=== PATIENT | female | born 1960 | race Caucasian/White ===

== ENCOUNTER → 2016-06-10 | Outpatient (CLI) | payer OTHER ==
--- NOTE | 2016-06-11 05:44 | PAP/PSG TECHNICIAN REPORT ---
[facility] On Awake Counselor Polysomnogram Report Study name: None Report date: 06/11/2016 Study date: 06/10/2016 Referring Physician: Ko Alex MD Name: NORMA MAY Interpreting Physician: Christophe Landaverde M.D. Date of : 1960 On Awake Counselor: Lashanda Del Cid RPS. Sex: Female Age: 56 StudyType: PSG Weight: 213 lbs Height: 56 years, Height 4' 11" Neck Circum:14.75inches BMI: 43.02 Medications: Etodolac ER 500mg, Omeprazole 20mg, Prednisone 10mg, Tramadol HCl 50mg, injections for arthritis Patient History Study started on room air with no ETCO2 monitoring in room #6. 56 yr old female here tonight for a possible split psg. She complains of EDS and poor sleep quality. She has difficulty falling asleep and difficulty maintaining sleep. She snores. She said she only gets about 4 to 5 hours of sleep per night. Her ESS=4/24. Neck circ=14.75inches. Parameters Monitored NPSG: E1-M2, E2-M1, Fp1-M2, Fp2-M1, F3-M2, F4-M2, F4-M1, C3-M2, C4-M2, C4-M1, O1-M2, O2-M2, O2-M1, T3-M2, T4-M1, P3-M2, P4-M1, CHIN1, CHIN2, HR, EKG, Legs, PFLOW, SNOR, FLOW, CFLOW, Tidal Volume, THOR, ABDO, SpO2, PLTH, CPRESS, ETCO2 Wave, ETCO2, pH Sleep Architecture Sleep Stages Time at Lights Off 9:11:35 PM STAGES Time (min.) TST (%) Time at Lights On 5:20:35 AM Wake 101.5 -- Total Recording Time (TRT) 489.00 min. N1 23.5 6 Total Sleep Period (TSP) 421.5 min. N2 232.0 60 Total Sleep Time (TST) 387.5min. N3 59.0 15 Awake Time 101.5 min. REM 73.0 19 Wake after Sleep Onset 59.0 min. Sleep Efficiency (SE) 79 % Sleep Onset Latency (JOE) 42.5 min. Number of Stage 1 Shifts None Awakenings 22 Stage Changes 75 Number of REM periods 4 REM 73.0 19 REM Latency 135.0 min. NREM 314.5 81 Body Position Analysis Supine Right Left Side Prone Vertical Total Sleep Time (min.) 161.1 51.6 215.7 267.26 0.0 0.0 Total Sleep Time (%) 31% 13% 56% 69 0% N/A% Total Sleep Time REM (min.) 5.5 0.0 67.5 None 0.0 0.0 Total Sleep Time NREM (min.) 114.7 51.6 148.2 None 0.0 0.0 Intermittent Wake (min.) 40.9 14.8 45.9 None 0.0 0.0 Total Sleep Period (%) 33% None None None None None Arousals Myoclonus (PLM) * Events Count Index Events Count Index Spontaneous 2 0 Events Awake (PLMW) 118 69.8 Respiratory 2 0.5 Events Asleep w/ Arousal (PLMA) 13 2.0 PLM 12 2 Events Asleep w/o Arousal (PLMS) 51 7.9 Snoring 13 2 Total Asleep 64 9.9 Total 27 4 Total 182 22 Respiratory Analysis * CA OA MA CH H RERA Total Count 0 1 0 0 17 0 18 Index 0.0 0.2 0.0 0 2.6 0 2.8 Mean Duration 0.0 11.1 0.0 0.00 17.7 0.0 17.3 Longest Duration 0.0 11.1 0.0 0.00 0.0 0.0 40.7 Respiratory Event Summary Total Supine ~Supine Right Left Prone REM NREM Apneas Count 1 0 1 0 1 N/A 1 0 Index 0.2 0 0 0.0 0.3 N/A 1 0 Hypopneas (4% Desat) Count 17 5 12 0 12 N/A 13 4 Index 2.6 2.5 3 0.0 3.3 N/A 10.7 0.8 Apneas & All Hypopneas Count 18 5 13 0 13 N/A 14 4 Index 2.8 2 3 0 4 N/A 11.5 0.8 Respiratory Events (Assistant Speech Language Pathologist+All Hyp+RERA) Count 18 5 13 0 13 N/A 14 4 Index 2.8 2 3 0.0 3.6 N/A 11.5 0.8 Respiratory Related Arousal Count 2 5 0 0 0 N/A 1 2 Index 0.5 1 0 0 0 N/A 1 0 Snoring Analysis Supine Right Left Prone REM NREM Total Snore duration 140.2 min Snores count 1,380 487 2,926 N/A 816 3,977 4,793 Snore mean duration 1.8 Sec Snores index 689 566 814 N/A 670.7 758.7 742.1 TST with snoring (%) 36.2% Desaturation Event Summary: Minimum %SpO2 Event Count Mean/Min/Max Duration(sec.) Desaturation Index % Time In Bed > 90 36 31.1 / 5.0 / 60.0 6.7 66.5 86 - 90 8 19.7 / 8.8 / 42.3 3.0 33.3 81 - 85 0 N/A 0.0 0.2 76 - 80 0 N/A 0.0 0.0 71 - 75 0 N/A 0.0 0.0 66 - 70 0 N/A 0.0 0.0 61 - 65 0 N/A 0.0 0.0 56 - 60 0 N/A 0.0 0.0 51 - 55 0 N/A 0.0 0.0 < 50 0 N/A 0.0 0.0 Total REM NREM Awake <50% 0.0 min. 0.0 min. 0.0 min. 0.0 min. 51 - 60% 0.0 min. 0.0 min. 0.0 min. 0.0 min. 61 - 70% 0.0 min. 0.0 min. 0.0 min. 0.0 min. 71 - 80% 0.0 min. 0.0 min. 0.0 min. 0.0 min. 81 - 90% 162.1 min. 38.9 min. 104.4 min. 18.8 min. 91 - 100% 321.9 min. 34.1 min. 210.1 min. 77.7 min. Average 91 90 91 92 Minimum SpO2 84 84 84 84 Desaturation Event Index 4.9 9.9 1.5 12.4 # Desat. Events below 89% 17 11 4 2 Time(%) with Saturation below 89% 3.7 1.9 1.2 0.6 Time(min.) with Saturation below 89% 18.0 9.4 5.9 2.7 Time (mins) REM (mins) NREM (mins) % of TST SpO2 Below 90% 16 12 N4 16.5 SpO2 Below 88% 7 0 0 1 Heart Rate Analysis Min (bpm) Max (bpm) Average (bpm) Awake 68 108 86 NREM 69 107 80 REM 70 89 77 Overall 69 107 80 Supplemental O2 Values Minimum O2 level: None Value Start Time End Time On Awake Counselor Comments Ms. May slept in the right, left and supine positions. No cardiac arrhythmia noted. Some leg movements noted. No bruxism noted. Snoring was noted and scored as a 5 on a scale of 1 through 5. (0=no snoring, 5=snoring loud enough to be heard through a closed door or down the [address] way) She did not use the restroom during the night. She stated that she slept better than when at home because she did not have distractions such as her computer or her work. The final report will be interpreted and signed by a sleep physician. The completed physician report will then be placed in the patient medical record. Therapy (cm H2O) 0 TIB (min.) 489.0 TST (min.) 387.5 Sleep Onset (min.) 42.5 REM Onset From Sleep (min.) 135.0 Sleep Efficiency % 79 Wakefulness (%) 21 Wakefulness (min.) 101.5 NREM 1 (%) 6 NREM 1 (min.) 23.5 NREM 2 (%) 60 NREM 2 (min.) 232.0 NREM 3 (%) 15 NREM 3 (min.) 59.0 REM (%) 19 REM (min.) 73.0 # Arousals 27 Arousal Index 4 # Snore 4,793 Snore Index 742.1 AHI 2.8 AHI Supine 2 AHI Non-Supine 3 NREM AHI 0.8 REM AHI 11.5 RDI 2.8 # Obstructive Apnea 1 # Central Apnea 0 # Mixed Apnea 0 # Hypopneas 17 RERAs 0 Total Respiratory Events 20 Time Below SpO2 89% (min.) 15.3 Mean NREM SpO2 (%) 91 Mean REM SpO2 (%) 90 Mean Sleep SpO2 (%) 91 Min NREM SpO2 (%) 84 Min REM SpO2 (%) 84 Position Supine (min.) 161.1 Position Non-supine (min.) 267.3 LM Index Sleep 9.9 LM Index NREM 8.4 LM Index REM 16.4 Mean Heart Rate (bpm) 80 Min Heart Rate (bpm) 69
--- NOTE | 2016-06-18 13:45 | POLYSOMNOGRAPH REPORT ---
CLINICAL DATA: A 56-year-old female with a BMI of [address] Ko Alex for excessive daytime sleepiness and poor sleep quality. She has difficulty with falling asleep and maintaining sleep. She does snore. She only gets 4-5 hours sleep per night. SLEEP ARCHITECTURE: Total sleep period was 421.5 minutes. Total sleep time was 387.5 minutes divided between 314.5 minutes of non-REM sleep and 73 minutes of REM sleep. Sleep onset latency was delayed at 42.5 minutes. REM latency was 135 minutes. Sleep efficiency was 79%. Wake after sleep onset was 59 minutes. Sleep consisted of stage N1 6%, N2 60%, N3 15%, and REM 19%. AROUSAL DATA: Twenty seven arousals were recorded for an index of 4 per hour. PLM DATA: Sixty four limb movements during sleep were noted for an index of 9.9 per hour with an arousal index of 2 per hour. RESPIRATORY DATA: There was no evidence of clinically significant sleep apnea/hypopnea noted. The AHI was 2.8. There was 1 obstructive apneic episode, 11 seconds in duration. There were 17 hypopneic episodes. The mean duration of hypopnea was 17.7 seconds. OXIMETRY DATA: Very mild nocturnal hypoxemia was seen. Oxygen román was 84%. During REM sleep, the mean saturation was 91%. Time below 88% was 7 minutes. EKG: Heart ranged from 69-107 beats per minute. No arrhythmias were noted. WATER PROJECT ENGINEER'S COMMENTS: The patient slept in the right, left, and supine positions. Snoring was severe, rated 5 on a scale of 1-5. IMPRESSION: No evidence of clinically significant sleep apnea/hypopnea with an apnea-hypopnea index of 2.8 with very mild nocturnal hypoxemia. RECOMMENDATIONS: The patient may benefit from weight loss and possibly use of nasal steroids for snoring. Clinical correlation is needed. [facility]
== END | disposition home or self-care (01) ==
LOC: C.NEUR 20:00
DX: G47.33 Obstructive sleep apnea (adult) (pediatric) (principal)